=== PATIENT | male | born 1955 | race Caucasian/White ===

== ENCOUNTER → 2023-11-29 12:11 | Outpatient (REF) | payer MEDICARE, SELFPAY | LOC: HWRAD 12:11 | PROVIDERS: ATTENDING PHYSICIAN Surgery Vascular Surgery; FAMILY PHYSICIAN Family Medicine | DX: I71.21 Aneurysm of the ascending aorta, without rupture (principal); I71.43 Infrarenal abdominal aortic aneurysm, without rupture | CPT/HCPCS: 71275; 74174; Q9967 ==

== ENCOUNTER → 2024-12-31 11:04 | Outpatient (REF) | payer MEDICARE, SELFPAY | LOC: RAD 11:04 | PROVIDERS: ATTENDING PHYSICIAN Surgery Vascular Surgery; FAMILY PHYSICIAN Internal Medicine Cardiovascular Disease | DX: I71.43 Infrarenal abdominal aortic aneurysm, without rupture (principal) | CPT/HCPCS: 76770 ==